=== PATIENT | female | born 1980 | race Caucasian/White ===

== ENCOUNTER 2025-11-19 12:39 | Emergency (ER) | payer OTHER, SELFPAY ==
--- NOTE | 2025-11-19 12:41 | ED_ITS ---
HPI - URI/Sore Throat General Chief Complaint: Upper Respiratory Infection Stated Complaint: Fever / Cough Time Seen by Provider: 11/19/25 12:40 Source: patient Mode of arrival: ambulatory Limitations: no limitations History of Present Illness HPI Narrative: patient is a 44-year-old female who presents with cough, PND, sore throat and fever for 5 days. Now having more productive cough and congestion. Was exposed to grandfather on [place] who is COVID positive as of yesterday. Patient has taken DayQuil, NyQuil, Mucinex, Tylenol and ibuprofen. Patient declined strep throat testing. Related Data Allergies Allergy/AdvReac Type Severity Reaction Status Date / Time No Known Allergies Allergy Verified 11/19/25 12:54 Review of Systems Review of Systems: All systems reviewed & are unremarkable except as noted in HPI and below Constitutional: Constitutional: Denies chills, Denies fatigue, Reports fever(s), Denies headache(s), Denies malaise and Denies weakness Eyes: Eyes: Denies blurry vision, Denies itchy eyes and Denies loss of vision ENT: Denies otalgia, Denies headache(s), Reports nasal congestion, Denies sinus pain and Reports sore throat Cardiovascular: Cardiovascular: Denies chest pain, Denies irregular heart rhythm and Denies dyspnea Respiratory: Respiratory: Reports cough and Denies dyspnea Gastrointestinal: Gastrointestinal: Denies abdominal pain, Denies diarrhea, Denies nausea and Denies vomiting Musculoskeletal: Musculoskeletal: Denies back pain, Denies myalgias and Denies arthralgias Integumentary/Breasts: Skin/Breast: Denies pruritus and Denies rash Neurologic: Denies headache(s), Denies loss of vision and Denies weakness Psychiatric: Psychiatric: Reports no additional psychiatric complaints Endocrine: Endocrine: Denies fatigue Allergic/Immunologic: Allergic/Immunologic: Denies itchy eyes PMFSH Past Medical History Medical History Screening mammogram, encounter for Labial lesion (07/15/13) labial lesion Biopsy Carcinoma in situ of cervical esophagus Anxiety Surgical History Surgical History History of colposcopy (10/18/07) no bx History of colposcopy (03/27/08) colposcopy & Cervical biopsy- LGSIL AYSE I History of colposcopy (10/30/08) colposcopy & Cervical biopsy- benign History of gynecological procedure (01/29/10) mirena iud insertion History of colposcopy (06/30/11) LGSIL AYSE 1 H/O LEEP (07/18/11) HGSIL AYSE 3- Mirena removed History of gynecological procedure (10/05/11) iud insertion History of colposcopy (04/24/13) AYSE 2-3 History of conization of cervix (05/28/13) AYSE 2-3 LEEP - cx dysplasia iud removal History of gynecological procedure (03/24/13) mirena iud insertion History of gynecological procedure (06/14/16) mirena iud removal - desires History of gynecological procedure (03/10/17) suction D&C 6 wk missed AB History of appendectomy (07/29/17) Delivery by section (03/23/18) primary c/s with Tubal ligation Family History Family History Father Hypertension Mother Hypertension Sibling Patient's sister is in good health Other Breast cancer Social History Social History Smoking status: Never smoker Second hand tobacco smoke exposure: No Alcohol intake: current Drinks per week: 2 Substance use: never Substance use type: does not use Lack of Transportation: No Lack of Food: Never True Current Housing: I Have Housing Concerned About Future Housing: No Difficulty Paying Gas/Electric Bills: No Difficulty Paying for Meds: No Currently Unemployed: No Education: Associate Degree Difficulty w/ Childcare or Family Care: No Living arrangements: other Additional living arrangements comments: Occupation/Education: occupation Additional occupation/education comments: RN Gender identity (if verbalized by the patient): Female Sexual Orientation (if Verbalized by the Patient): Straight or Heterosexual Comments At time of signature, agree with nursing past medical, surgical, social and family history. There is no relevant family history pertinent to the presenting complaint. Exam Const: General: cooperative, healthy appearing, comfortable, no acute distress and well nourished Nutritional Appearance: well nourished Orientation/c onsciousness: patient oriented x3 Limitations: no limitations HENMT: Head: normal to inspection, normocephalic and atraumatic Ears: hearing grossly normal bilaterally, external ears normal, TM's normal bilaterally, EAC's normal and no periauricular adenopathy Face/Nose/Sinus: Normal external nose present, Abnormal mucous membranes and turbinates present erythematous bilateral and diffuse, normal facial exam, sinuses nontender and face symmetric Face and sinus: normal facial exam, sinuses nontender and face symmetric Mouth: Yes Normal oral and palatal mucosa present, Yes lip normal, Yes tongue normal, Yes Normal salivary glands and ducts present, Yes oropharynx normal and Yes moist mucous membranes Teeth and gingiva: dentition normal Throat: posterior oropharynx normal, tonsils normal and uvula midline Eyes: General: appearance normal, both eyes and all related structures Alignment and Position: alignment normal and position normal Periorbital: periorbital findings normal Eyelids: eyelids normal Pupils: Equal, round and reactive pupils present Neck: Neck: normal visual inspection, full ROM, no lymphadenopathy and supple Chest: Chest palpation & inspection: normal inspection of the chest and normal palpation of entire chest wall Resp: Effort & Inspection: normal respiratory effort and able to speak in complete sentences Auscultation: clear to auscultation bilaterally, no cr ackles, no rales, no rhonchi and no wheezes Cardio: Rate: regular rate Rhythm: regular rhythm Heart sounds: S1 normal heart sound present and S2 normal heart sound present GI: Inspection: normal to inspection Skin: General skin exam: normal color and no rashes or lesions noted Neuro: General: patient oriented x3 and moves all extremities Cranial nerves: Yes Equal, round and reactive pupils present Speech: normal speech Gait exam (Neuro): Normal gait present Extrem: General: normal to inspection, full ROM and no edema Psych: Appearance: grossly normal and well kempt Mental Status: mental status grossly normal Speech and movement: Normal speech and movement present Affect: normal affect Attitude: cooperative Thought process: Normal thought process present Course Course Emergency Course: Patient is aware of diagnosis, understands and agrees to treatment plan. Anticipatory guidance given. Patient agrees to follow-up as directed and is aware of reasons to seek care at the emergency department. Portions of this record may have been created with voice recognition software Level of Care: Express Care Visit Vital Signs Vital signs: Vital Signs Temperature 36.3 C L 11/19/25 12:49 Pulse Rate 90 11/19/25 12:49 Respiratory Rate 18 11/19/25 12:49 Blood Pressure 117/64 11/19/25 12:49 Pulse Oximetry 100 11/19/25 12:49 Oxygen Delivery Room Air 11/19/25 12:49 Temperature 36.3 C L 11/19/25 12:49 Pulse Rate 90 11/19/25 12:49 Respiratory Rate 18 11/19/25 12:49 Blood Pressure 117/64 11/19/25 12:49 Pulse Oximetry 100 11/19/25 12:49 Oxygen Delivery Room Air 11/19/25 12:49 [facility] Narrative Medical decision making narrative: patient positive for COVID. Declined prescription for cough medicine for Nella Martinez. Patient appears upset with no antibiotic prescription. Explained to patient that she is positive for COVID and symptoms have not even been present for 1 week. Patient states since symptoms are worsening it is a sinus infection or ear infection especially with thick green mucus. Reiterated that symptoms are consistent with COVID which is viral but will prescribe some steroids to help with inflammation. Suggested Sudafed D behind the pharmacy counter to help with sinus pressure. Reiterated that Afrin can only be used for 3 days or she will have rebound congestion. Pt well hydrated appearing, in no respiratory distress, hemodynamically stable. Recommend supportive care. The patient is stable at time of discharge the clinical impression was discussed and the patient was given the opportunity to ask questions, which were addressed as completely as possible given the information available at present. Anticipatory guidance and return to care precautions were discussed and the importance of primary care follow-up was stressed and encouraged. The patient voiced understanding of the plan, indications to return, and the need for follow-up. Exam findings show no acute concerns or changes Patient is appropriate for outpatient treatment and follow-up. Differential Diagnosis Differential Diagnosis: Differential diagnosis considered: Andres virus, strep pharyngitis, allergic rhinitis, upper respiratory tract infection, sinusitis, rhinosinusitis, nasopharyngitis. viral pharyngitis, otitis media, otitis externa, otitis effusion, foreign body, cerumen impaction, viral syndrome, and influenza. Medical Records I have reviewed the following patient records and this information was taken into consideration when formulating the assessment and plan.: previous clinic visits Lab Data MDM Lab Attestation statement: I personally reviewed the patient's lab results. Labs: Lab Results 11/19/25 Range/Units 13:09 POC Influenza A Ag Negative (Negative) POC Influenza B Ag Negative (Negative) POC SARS CoV-2 Ag Positive (Negative) Discharge Plan Discharge Clinical Impression: COVID Patient Disposition: Home Condition: Stable Instructions: COVID-19 (Coronavirus Disease 2019) (ED) Additional Instructions: Your rapid COVID test was positive today. The following recommendations have been made by the CDC and local Health Departments, regarding COVID-19: -wear a mask for 5 days, as long as your fever free for 24 hours you could return to work -Majority of mild to moderate cases can be treated at home, without hospitalization or prescription medications You do not need a negative test result to return to work/school, assuming the above recommendations have been met and you are not symptomatic. Treating symptoms for mild to moderate cases may include: -Alternate Tylenol and Motrin per package directions for fever or pain. -Antihistamine medication such as Benadryl/Zyrtec at night and Claritin/Celine during the day can help improve symptoms. -Use Flonase twice a day for 5 days then daily to help reduce the inflammation and dry up your sinuses. -You can also use Sudafed behind the pharmacy counter(12 or 24 hour). Be sure to drink plenty of water with these medications at least 8 ounces with every dose and it is important to drink 8 to 10 glasses of water per day. Water is a natural decongestant Take Motrin alternating with Tylenol for pain and fever alternating every 3 hours. 8 AM: Tylenol 11 AM: Ibuprofen 2 PM: Tylenol 5 PM: Ibuprofen 8 PM: Tylenol 11 PM: Ibuprofen 2 AM: Tylenol 5 AM: Ibuprofen Common Adult Symptoms: Fever/chills Cough Shortness of breath Fatigue, muscle aches Headache Loss of taste/smell Sore throat, congestion, runny nose GI symptoms (nausea, vomiting, diarrhea) Common Pediatric Symptoms Cough Fever GI symptoms (diarrhea, upset stomach, nausea, vomiting) Symptoms may differ in severity however, most cases do not require hospitalizati on. WHEN TO SEEK ER EVALUATION/TREATMENT: Severe/persistent shortness of breath or difficulty breathing Elevated, persistent fevers without resolution with fever-reducing medications Chest pain Extreme fatigue/lethargy Complications of pre-existing disease Patient Language: Uzbek Prescriptions: New methylprednisolone [Medrol (Nilesh)] 4 mg tablets,dose pack See Rx Instructions .ROUTE .COMPLEX Qty: 21 0RF Rx Instructions: orally per package directions Follow-up/Referrals: Ronald Jolly MD [Physician, Family Practice] - 1 Week Time of Disposition: 13:23
--- OUTSIDE RECORDS SUMMARY | 2025-11-19 12:47 | XMS_ITS | Clinical Summary ---
Author Organization [facility] Address [address] [place] [address] Care Team Providers Care Brand Marketing Specialist Name Role Phone Unavailable Primary Care Provider Unavailabl e Source Comments [facility],non-owned Affiliates and Associated Physician Practices is amultiple site organization consisting of ambulatory clinics and hospital sitesin [place], [place], [place] and [place]. This disclosure is being madepursuant to the Care Everywhere program and may not contain all information available regarding this patient. Last updated 18.[facility] Allergies Active Allergy Reactions Criticality Noted Date Comments Amoxicillin Rash Medium 10/31/2017 As a child Medications * Be aware that medications may not be up to date on this document. Alwaysverify current medications with the patient. 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 (HCC) Insert 1 capsule into the vagina at bedtime 30 capsule 6 10/31/20 17 Active Additional Information Patient not taking.Reported on 02/24/2018 Vit-Fe Fumarate-FA ( VITAMIN) 28-0.8 MG tabletIndications:P regnancy Take 1 tablet by mouth once daily Reasons: Active docusate sodium (COLACE) 100 MG capsule Take 100 mg by mouth once daily as needed for Constipation Active iron polysaccharides (NIFEREX 150) 150 MG capsule Take 150 mg by mouth once daily Active Active Problems Problem Noted Date Diagnosed Date Positive GBS test 03/02/2018 Placenta previa without hemorrhage, antepartum 0 02/16/2018 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 10/31/2017 Antepartum multigravida of advanced maternal age 1210/30/2017 Immunizations Immunization Administration Dates Next Due Rho D Immune Globulin 02/25/2018 Family History Medical History Relation Name Comments Hypertension Father Hypertension Mother Relation Name Status Comments Father Mother Social History Tobacco Use Types Packs/Day Years Used Date Smoking Tobacco: Never Smokeless Tobacco: Never Alcohol Use Standard Drinks/Week Comments No 0 (1 standard drink = 0.6 oz pur e alcohol) Comments No Sex and Gender Information Value Date Recorded Sex Assigned at Not on file Legal Sex Female 9:52 AM [facility] Gender Identity Not on file Sexual Orientation Not on file Last Filed Vital Signs Vital Sign Reading Time Taken Comments Blood Pressure 103/64 03/01/2018 12:00 PM CDT Pulse 83 03/01/2018 12:00 PM CDT Temperature 36.7 C (98 F) 03/01/2018 8:25 AM CDT Respiratory Rate 16 03/01/2018 8:25 AM CDT Oxygen Saturation 98% 03/01/2018 8:25 AM CDT Inhaled Oxygen Concentration - - Weight 73 kg (161 lb) 02/24/2018 9:50 PM CDT Height 162.6 cm (5' 4) 02/24/2018 9:50 PM CDT Body Mass Index 27.64 02/24/2018 9:50 PM CDT Plan of Treatment Health Maintenance Due Date Last Done Comments LIPID TESTING 1982 MAMMOGRAM 1982 HIV SCREENING 1997 HEPATITIS C SCREENING 12/06/2000 DTAP/TDAP/TD VACCINES (1 - Tdap) 2001 HEPATITIS B VACCINE (1 of 3 - 19+ 3-dose series) 2001 PAP SMEAR 2003 HPV VACCINE (1 - 3-dose SCDM series) 2009 DEPRESSION SCREENING 11/20/2024 COVID-19 VACCINE (1 - 2024-2 6 season) 2025 INFLUENZA VACCINE (#1) 2025 ZOSTER VACCINE (1 of 2) 2032 HIB VACCINE Aged Out No longer eligi ble based on patient's age to complete this topic MENINGOCOCCAL (Group B) VACC INE SHARED DECISION-MAKING Aged Out No longer eligibl e based on patient's age to complete this topic MENINGOCOCCAL GROUPS A/C/Y/W VACCINE Aged Out No longer eligible b ased on patient's age to complete this topic PNEUMOCOCCAL VACCINE Aged Out No long er eligible based on patient's age to complete this topic Insurance HEALTH CARE HEALTH CARE Advance Directives * Full Code (Latest Code Status on File) Date Activated Date Inactivated Comments 02/24/2018 8:09 PM 03/01/2018 5:14 PM
[2025-11-19 12:49] VITALS: BP 117/64; PULSE 90; RESP 18; TEMP 36.3; O2SAT 100
[2025-11-19 13:10] LABS: EDCOVIDSCREEN Positive (Negative); EDINFLUASCREEN Negative (Negative); EDINFLUBSCREEN Negative (Negative)
== END 2025-11-19 13:25 | disposition home or self-care (01) ==
PROVIDERS: Emergency Provider Nurse Practitioner Family
DX: U07.1 COVID-19 (principal); F41.9 Anxiety disorder, unspecified
CPT/HCPCS: 87426; 87804; 99213; G0463